=== PATIENT | female | born 1990 | race African-American/Black ===

== ENCOUNTER 2022-04-24 06:28 | Observation (INO) ==
--- NOTE | 2022-04-22 14:38 | Anesthesiology Consultation ---
Date of Service April 22, 2022 Assessment & Plan (1) Encounter for pre-operative examination: Chart Review Chart Review: Acceptable Risk for Surgery and Patient NOT seen in Pre Admission Testing - Check test AM DOS -COVID screening: Per PAT nursing assessment on 04/21/22. No known COVID-19 positive contacts or current COVID-19 related symptoms. Travel screen negative. Patient vaccinated for Covid. Preop Covid test scheduled 04/22/22 at [facility]= awaiting results. Proposed Anesthesia Anesthesia Type: General (with duramorph spinal for pain mgmt) History Surgery Operation Date: 04/24/22 08:00 Proposed Procedures p Diagnostic Laparotomy, Abdominal Myomectomy - Lidia Lazo Height/Weight Height: 5 ft 5 in Weight: 60.781 kg Allergies Allergy/AdvReac Type Severity Reaction Status Date / Time No Known Allergies Allergy Verified 04/24/22 07:00 Medications Home Medications Medication Instructions Recorded Confirmed Last Taken No Known Home Medications 04/21/22 04/24/22 Unknown Active Medications Generic Name Dose Route Start Last Admin Trade Name Dayne PRN Reason Stop Dose Admin Lactated Ringer's 1,000 mls @ 15 mls/hr 04/24/22 06:00 04/24/22 07:14 Lr IV 04/25/22 05:59 15 mls/hr .Q24H VASHTI Administration Lactated Ringer's 1,000 mls @ 125 mls/hr 04/24/22 06:00 04/24/22 07:18 Lr IV 04/24/22 13:59 Not Given .Q8H VASHTI Past Medical History Medical History History of COVID-19 12/2021--no symptoms now Past Family History Family History Other No family history of adverse response to anesthesia Past Surgical History Surgical History History of salpingectomy left 12/2021 Social History Smoking Status: Never smoker Do You Dip or Chew Tobacco: No Hx Alcohol Use: Yes alcohol intake frequency: holidays/special occasions only Hx Substance Use: No substance use type: does not use Physical Exam Vital Signs Last Vital Signs Temp 36.7 C 04/24/22 07:19 Pulse 76 04/24/22 07:19 Resp 20 04/24/22 07:19 BP 124/75 04/24/22 07:19 Pulse Ox 100 04/24/22 07:19 O2 Del Method Room Air 04/24/22 07:19 Testing Laboratory Results 04/24/22 07:18 POC Ur Test NEG 04/22/22= WBC: 5.53 H/H: 11.5/38.3 PLATELETS: 462 SODIUM: 135 POTASSIUM: 4.1 CHLORIDE: 103 CO2: 23 BUN: 15 CREATININE: 0.7 GLUCOSE: 100
[~2022-04-24 06:28] MED LIST: LACTATED RINGER'S 1,000 ML IV SCH; LR 15ML/HR IV SCH; ceFAZolin 2000MG 2,000 MG/15 ML SYR IV SCH
[2022-04-24] MEDS ORDERED: DEXAMETHASONE SOD INJ 4 MG/ML VIAL ONE (07:22)
[2022-04-24] MEDS ORDERED: GLYCOPYRROLATE 0.2 MG/ML VIAL ONE (07:22)
[2022-04-24] MEDS ORDERED: NEOSTIGMINE METHYLSULFATE 1 MG/ML 10ML VIAL ONE (07:22)
[2022-04-24] MEDS ORDERED: ONDANSETRON INJ 2 MG/ML 2 ML VIAL ONE (07:22)
[2022-04-24] MEDS ORDERED: PROPOFOL IV EMULSION 10 MG/ML 20 ML VIAL IV ONE (07:22)
[2022-04-24] MEDS ORDERED: fentaNYL citrate 100 MCG/2 ML VIAL ONE (07:23)
[2022-04-24] MEDS ORDERED: ROCURONIUM BROMIDE 10 MG/ML 5 ML VIAL IV ONE (07:23)
[2022-04-24] MEDS ORDERED: LIDOCAINE 2% MPF LOCAL 5 ML VIAL INFIL ONE (07:23)
[2022-04-24] MEDS ORDERED: MIDAZOLAM HCL 1 MG/ML 2ML VIAL ONE (07:23)
[2022-04-24] MEDS ORDERED: SODIUM CHLORIDE 0.9% PF 50 ML VIAL ONE (07:59)
[2022-04-24] MEDS ORDERED: VASOPRESSIN 20 UNIT/ML VIAL ONE (07:59)
[2022-04-24] MEDS ORDERED: BUPIVACAINE LIPOSOME 1.3% 266 MG/20 ML VIAL ONE (08:00)
[2022-04-24] MEDS ORDERED: MoRPHine SULFATE PF 1 MG/ML 10 ML AMP/VIAL ONE (08:00)
--- NOTE | 2022-04-24 08:02 | Anesthesiology Consultation ---
Date of Service April 24, 2022 Assessment & Plan (1) Encounter for pre-operative examination: Chart Review Chart Review: Acceptable Risk for Surgery History Surgery Operation Date: 04/24/22 08:00 Proposed Procedures p Diagnostic Laparotomy, Abdominal Myomectomy - Lidia Lazo Height/Weight Height: 5 ft 5 in Weight: 61.8 kg Allergies Allergy/AdvReac Type Severity Reaction Status Date / Time No Known Allergies Allergy Verified 04/24/22 07:00 Medications Home Medications Medication Instructions Recorded Confirmed Last Taken No Known Home Medications 04/21/22 04/24/22 Unknown Active Medications Generic Name Dose Route Start Last Admin Trade Name Freq PRN Reason Stop Dose Admin Lactated Ringer's 1,000 mls @ 15 mls/hr 04/24/22 06:00 04/24/22 07:14 Lr IV 04/25/22 05:59 15 mls/hr .Q24H VASHTI Administration Lactated Ringer's 1,000 mls @ 125 mls/hr 04/24/22 06:00 04/24/22 07:18 Lr IV 04/24/22 13:59 Not Given .Q8H VASHTI NPO Date Last Intake of Fluids: 04/23/22 Time Last Intake of Fluids: 23:00 Date Last Intake of Solids: 04/23/22 Time Last Intake of Solids: 20:00 Past Medical History Medical History History of COVID-19 12/2021--no symptoms now Past Family History Family History Other No family history of adverse response to anesthesia Past Surgical History Surgical History History of salpingectomy left 12/2021 Social History Smoking Status: Never smoker Do You Dip or Chew Tobacco: No Hx Alcohol Use: Yes alcohol intake frequency: holidays/special occasions only Hx Substance Use: No substance use type: does not use Physical Exam Vital Signs Last Vital Signs Temp 36.7 C 04/24/22 07:19 Pulse 76 04/24/22 07:19 Resp 20 04/24/22 07:19 BP 124/75 04/24/22 07:19 Pulse Ox 100 04/24/22 07:19 O2 Del Method Room Air 04/24/22 07:19 Testing Laboratory Results 04/24/22 07:18 POC Ur Test NEG
--- NOTE | 2022-04-24 08:03 | History & Physical Bridge Note ---
Date of Service April 24, 2022 History & Physical Bridge Note I have examined the patient, reviewed the History & Physical and in the interval since the performance of the History & Physical I have noted the following changes of clinical significance: no changes noted
[2022-04-24] MEDS ORDERED: HEPARIN (PORCINE) 1000 UNIT/ML 10 ML (CATH LAB USE ONLY) ONE (08:17)
[2022-04-24] MEDS ORDERED: ePHEDrine sulfate 50 MG/ML AMP IV PRN (09:43)
[2022-04-24] MEDS ORDERED: KETOROLAC 30 MG/ML VIAL IV PRN (09:43)
[2022-04-24] MEDS ORDERED: NALOXONE HCL 0.08 MG in SYRINGE 1.8 ML IV PRN (09:43)
[2022-04-24] MEDS ORDERED: MEPERIDINE HCL 25 MG/ML CARP/VIAL IV PRN (09:43)
[2022-04-24] MEDS ORDERED: PROMETHAZINE HCL 6.25 MG in SODIUM CHLORIDE 0.9% 50 ML IV PRN (09:43)
[2022-04-24] MEDS ORDERED: NALOXONE HCL 0.4 MG/1 ML VIAL/CARP IV PRN (09:43)
[2022-04-24] MEDS ORDERED: NALOXONE HCL 1 MG in SODIUM CHLORIDE 0.9% 1000ML 1,000 ML IV PRN (09:43)
[2022-04-24] MEDS ORDERED: MoRPHine SULFATE PF 1 MG/ML 10 ML AMP/VIAL INT SPINAL ONE (09:43)
[2022-04-24] MEDS ORDERED: LACTATED RINGER'S 500 ML IV PRN (09:43)
[2022-04-24] MEDS ORDERED: diphenhydrAMINE 50 MG/ML VIAL IV PRN (09:43)
[2022-04-24] MEDS ORDERED: ONDANSETRON INJ 2 MG/ML 2 ML VIAL IV PRN ×2 (09:43→16:48)
[2022-04-24] MEDS ORDERED: NALBUPHINE HCL INJ 10 MG/ML AMP IV PRN (09:43)
[2022-04-24] MEDS ORDERED: NO NARCOTICS OR SEDATIVES SCH (09:45)
[2022-04-24] MEDS ORDERED: SODIUM CHLORIDE 0.9% 1000ML 1,000 ML IV SCH (09:45)
[2022-04-24] MEDS ORDERED: DC INTRASPINAL MORPHINE SCH (09:45)
[2022-04-24] MEDS ORDERED: SURGICEL ABSORB HEMOSTAT 2IN X 14IN TOP ONE (10:25)
[2022-04-24] MEDS ORDERED: SUGAMMADEX SODIUM 200 MG/2 ML VIAL IV ONE (10:44)
--- NOTE | 2022-04-24 11:15 | Post Operative Brief Note ---
Immediate Post Op Note v1 Date of Surgery April 24, 2022 Pre & Post Diagnosis Operation Date: 04/24/22 08:00 Pre-Op Diagnosis: Uterine Fibroids Post-Op Diagnosis: Uterine Fibroids I identified the patient and participated in the time-out.: Yes Procedure Operation Date: 04/24/22 08:00 Actual Procedures p Diagnostic Laparotomy, Abdominal Myomectomy, Hysteroscopy and Dilation of Cervix(Not Applicable) - Lidia Lazo Surgeon Lidia Lazo Ladies' Locker Room Attendant BRITT Fang-C Estimated Blood Loss 100 Findings Consistent with Post-Op Diagnosis Drains Peguero Catheter (16f inserted by BRITT Fang; balloon filled with 10cc; returned clear yellow urine; monitored by anesthesia)
--- NOTE | 2022-04-24 11:28 | Operative Report ---
Post Operative Report Pre & Post Diagnosis Operation Date: 04/24/22 08:00 Pre-Op Diagnosis: Uterine Fibroids Post-Op Diagnosis: Uterine Fibroids I identified the patient and participated in the time-out.: Yes Procedure Operation Date: 04/24/22 08:00 Actual Procedures p Diagnostic Laparotomy, Abdominal Myomectomy, Hysteroscopy and Dilation of Cervix(Not Applicable) - Lidia Lazo Surgeon Lidia Lazo Bungy Jump Master Janine Moreno PA-C Estimated Blood Loss 100 Findings See Below 1. 8 cm anteverted multi-fibroid uterus 2. Normal appearing ovaries bilaterally 3. Normal appearing right fallopian tube 4. Left fallopian tube surgically absent 5. On hysteroscopy, no endometrial fibroids or polyps noted after myomectomy Fluids See Anesthesia Report Specimens Uterine gunderson Drains Gunderson catheter in place. Urine: 200 ml Anesthesia Type General Complications none Indications 32 yo with multi-fibroid uterus desiring surgical removal of uterine f ibroids via abdominal myomectomy. Description of Procedure The patient was taken to the operating room when anesthesia was found to be adequate for the abdominal myomectomy procedure. She was prepared and draped in a normal sterile fashion, in dorsal lithotomy position. A weighted speculum was placed into the patients vagina. A gunderson catheter was placed without difficulty. Attention was turned to the patients abdomen, at which time a Pfannenstiel skin incision was made with a scalpel and carried down to the underlying fascia with a Bovie. This incision was extended laterally using Horan scissors. The superior and inferior aspects of this incision were grasped with the Rayna clamps, elevated, and the rectus muscles were dissected off. Access was gained to the peritoneal cavity through a separation of the rectus muscles. At that time, a survey of the upper abdomen revealed no gross abnormalities palpated. The pelvis showed an enlarged multiple fibroid uterus. At that time, the bowel was packed away with large moist lap pads. The Nish retractor was placed into the patients abdomen to facilitate visualization. Once there was proper visualization of the uterus, the anterior surface of the uterus was then evaluated and a dilute solution vasopressin was injected along the myoma surfaces. Once the myomas were isolated, they were grasped with the lehay clamps and between blunt dissection and needle tip Bovie cautery, that was used to be shelled out of the myometrium completely. Once all the anterior fibroids were removed, each remaining surface was closed in three layers using 0 V-loc suture and finally 2-0 Vicryl in the serosal layer. This was done all along the anterior surface of the uterus where each myoma was removed. Hemostasis was ensured throughout each incision site. Once all fibroids were removed, there were a total of 14 fibroids. The pelvis was then suctioned and again hemostasis was ensured. Surgicel was placed along the incision sites. Hemostasis again noted. All packs and retractor were removed from the patients abdomen. She was flattened out of the Trendelenburg position. The fascia was reapproximated using 0 Vicryl x2. The subcutaneous tissue was closed using 2-0 Vicryl suture and finally the skin was closed with 4-0 monocryl suture.. Attention was returned the vagina. The cervix was exposed with a weighted vaginal speculum and the anterior lip of the cervix grasped with a single tooth tenaculum. The uterus was sounded to a depth of approximately 8 cm. The endocervical canal was then progressively dilated with Galvan dilators. The hysteroscope was then introduced into the uterine cavity using sterile saline solution as a distending media and with attached video camera. The endometrial cavity was distended with fluids and the cavity visualized. The submucosal fibroid noted on MRI was not visualized and most likely removed during the abdominal portion of the procedure. Several pictures were taken of the endometrial cavity and the hysteroscope removed from the cavity. The instruments were removed from the vaginal vault. Hemostasis was noted. Sponge, lap, and needle counts were correct x2 and she was taken to the recovery room in stable condition. My Bungy Jump Master was necessary throughout the procedure for uterine manipulation, retraction, handling of laparotomy instruments to ensure adequate visualization, gentle tissue manipulation, and hemostasis. I attest to the content of the Intraoperative Record and any orders documented therein. Any exceptions are noted below.
--- NOTE | 2022-04-24 11:37 | Anesthesiology Progress Note ---
Date of Service April 24, 2022 Anesthesia Post Procedure Vital Signs Vital Signs: Temp Pulse Pulse Resp BP Pulse Ox O2 Del Method 04/24/22 11:30 81 18 107/78 99 Room Air 04/24/22 11:20 81 99 H 16 114/72 98 Room Air 04/24/22 11:10 36.3 C L 99 H 16 128/81 100 Oxymask 04/24/22 07:19 36.7 C 76 20 124/75 100 Room Air O2 Flow Rate 04/24/22 11:30 04/24/22 11:20 04/24/22 11:10 7 04/24/22 07:19 Transfer of Care Handoff Completed per policy Notes Mental Status: alert / awake / arousable Patient Amnestic to Procedure: Yes Nausea / Vomiting: adequately controlled Pain: adequately controlled Airway Patency, RR, SpO2: stable & adequate BP & HR: stable & adequate Hydration State: stable & adequate Neuraxial Anesthesia: was administered and sensory block is resolving Anesthetic Complications: no major complications apparent
[2022-04-24] MEDS ORDERED: KETOROLAC 30 MG/ML VIAL ONE (12:17)
[2022-04-24] MEDS: LACTATED RINGER'S 1,000 ML IV SCH ×2 (12:20→17:54)
[2022-04-24] MEDS: KETOROLAC 30 MG/ML VIAL IV SCH ×3 (12:20→23:40)
[2022-04-24] MEDS: SIMETHICONE 80 MG CHEW PO SCH ×3 (13:32→21:00)
[2022-04-24] MEDS: ACETAMINOPHEN 325 MG TAB PO PRN ×2 (15:23→23:45)
[2022-04-24] MEDS ORDERED: LACTATED RINGER'S 500 ML IV ONE (17:20)
[2022-04-24] MEDS: DOCUSATE SODIUM 100 MG CAP PO SCH (20:55)
[2022-04-25] MEDS: LACTATED RINGER'S 1,000 ML IV SCH (03:42)
[2022-04-25] MEDS ORDERED: oxyCODONE HCL IR 5 MG TAB (IMMEDIATE RELEASE) PO PRN (03:46)
[2022-04-25] MEDS ORDERED: ONDANSETRON INJ 2 MG/ML 2 ML VIAL IV PRN (03:46)
[2022-04-25] MEDS: KETOROLAC 30 MG/ML VIAL IV SCH ×2 (05:08→10:58)
[2022-04-25] MEDS: SIMETHICONE 80 MG CHEW PO SCH ×2 (05:08→11:02)
--- NOTE | 2022-04-25 08:12 | Gynecologic Progress Note ---
Date of Service April 25, 2022 Assessment & Plan (1) Uterine fibroid: Plan: s/p Diagnostic laparotomy, abdominal myomectomy, dilation of cervix, and diagnostic hysteroscopy. Plan to discharge home with instructions. Post-op medications previously prescribed. Admission and Anticipated Discharge Date Admission Date: April 24, 2022 Subjective POD#1. s/p Abdominal myomectomy. Patient reports pain is a 1/10. N/V overnight with fluids. Desires breakfast this morning. +Flatus. Ambulating without difficulty. Peguero catheter removed. Minimal vaginal spotting. Review of Systems Review of Systems: All systems reviewed & are unremarkable except as noted in HPI & below Physical Exam Constitutional: WD/WN, vitals as above Respiratory: normal respiratory effort, lungs clear to auscultation Cardiovascular: RRR, no murmur, no edema Gastrointestinal (Abdomen): normal bowel sounds, soft, nontender, no hepatosplenomegaly Incision: C/D/I. Dermbond in place. Results & Data ([facility]) Vital Signs (Past 12 Hours) Vital Signs Temp Pulse Resp BP BP Pulse Ox O2 Del Method 04/25/22 05:00 36.6 C 80 18 94/55 L 98 Room Air 04/25/22 02:40 18 97 04/25/22 01:40 18 98 04/25/22 03:40 18 97 04/25/22 00:40 18 99 04/24/22 23:40 18 98 04/24/22 23:46 84 18 106/69 99 Room Air 04/24/22 22:40 18 99 04/24/22 21:40 18 98 04/24/22 20:40 20 98
--- NOTE | 2022-04-25 08:15 | Discharge Summary ---
Date of Service April 25, 2022 Admission HPI Per Admitting Provider 32 yo with multiple uterine fibroids who presented for surgical removal via myomectomy. Admission Exam (Per Admitting) Constitutional WD/WN, vitals as above Respiratory normal respiratory effort, lungs clear to auscultation Cardiovascular RRR, no murmur, no edema Gastrointestinal (Abdomen) normal bowel sounds, soft, nontender, no hepatosplenomegaly Discharge Data Procedures Performed Operation Date: 04/24/22 08:00 Actual Procedures p Diagnostic Laparotomy, Abdominal Myomectomy,(Not Applicable) - Lidia Lazo s Hysteroscopy and Dilation of Cervix(Not Applicable) - [facility] ([facility] Uterine fibroid: s/p Diagnostic laparotomy, abdominal myomectomy, dilation of cervix, and marlys gnostic hysteroscopy. Plan to discharge home with instructions. Post-op medications previously prescribed.
[2022-04-25] MEDS: DOCUSATE SODIUM 100 MG CAP PO SCH (08:50)
[2022-04-25] MEDS: ACETAMINOPHEN 325 MG TAB PO PRN (08:50)
== END 2022-04-25 11:20 | disposition home or self-care (01) ==
LOC: 4E1 06:28 → ASU 06:28